=== PATIENT | female | born 1950 | race Caucasian/White ===

== ENCOUNTER 2017-10-27 17:33 | Emergency (ER) | payer MEDICARE, BC ==
[2017-10-27] MEDS ORDERED: Lidocaine 1% w/Epinephrine 1:100K 30 ML VIAL ONE (17:53)
[2017-10-27] MEDS ORDERED: Bacitracin Zinc 1 Packet ONE (17:54)
[2017-10-27] MEDS ORDERED: Ibuprofen 100 MG/5 ML UDCUP ONE (19:05)
== END 2017-10-27 18:52 | disposition home or self-care (01) ==
LOC: NAV ERS 17:33
DX: S81.812A Laceration without foreign body, left lower leg, initial encounter (principal); E03.9 Hypothyroidism, unspecified; E78.5 Hyperlipidemia, unspecified; Z79.899 Other long term (current) drug therapy; W26.8XXA Contact with other sharp object(s), not elsewhere classified, initial encounter; Y92.821 Forest as the place of occurrence of the external cause
CPT/HCPCS: 12032; J2001